=== PATIENT | female | born 1960 | race Caucasian/White ===

== ENCOUNTER 2019-05-02 10:29 | Observation (INO) ==
[2019-05-02] MEDS ORDERED: ZOFRAN IV PRN (14:07)
--- NOTE | 2019-05-02 14:25 | Diag Imaging Result Doc PS360 ---
CHEST-2 VIEWS - 05/02/2019 INDICATION: direct admit COMPARISON: None FINDINGS: There is significant left upper lobe pneumonia in the posterior segment. Heart size is normal. No pneumothorax or pleural effusion. IMPRESSION: Left upper lobe pneumonia. Consider a chest CT for further evaluation. Electronically signed by Kemar Wright 05/02/2019 2:23 PM
--- NOTE | 2019-05-02 15:19 | Diag Imaging Result Doc PS360 ---
EXAM: CT HEAD W/O CONTRAST HISTORY: r/o mets TECHNIQUE: CT head without contrast COMPARISON: None. FINDINGS: No parenchymal hemorrhage. No epidural or subdural hematoma. No subarachnoid hemorrhage. No mass identified on this noncontrasted exam. No hydrocephalus. No sinus opacification. IMPRESSION: No hemorrhage or mass. If clinical suspicion persists an MRI is recommended.. This exam was performed using automated exposure control, adjustment of mA or kV according to patient size, and/or use of iterative reconstruction technique. Electronically signed by Sincere Mcfadden 05/02/2019 3:17 PM
[2019-05-02 15:20] LABS: BASO# 0.02 X1000 (0.0-0.2); BASO% 0.2 % (0.0-0.8); EOS# 0.03 X1000 (0.0-0.7); EOS% 0.4 % (0.0-10.0); HEMATOCRIT 36.4 % (37.0-47.0); HEMOGLOBIN 12.2 g/dL (12.0-16.0); IMM GRAN# 0.02 X1000 (0.0-0.04); IMM GRAN% 0.2 % (0.0-0.5); LYMPH# 0.98 X1000 (1.2-3.4); LYMPH% 12.1 % (20.5-51.1); MCH 31.5 PG (27-31); MCHC 33.5 g/dL (33-37); MCV 94.1 FL (81-99); MONO% 6.2 % (1.7-9.3); MPV 9.4 FL (7.4-10.4); NEUT# 6.54 X1000 (1.4-6.5); NEUT% 80.9 % (42.2-75.2); PLT 346 X1000 (130-400); RBC 3.87 XMIL (4.2-5.4); RDW 13.5 % (11.5-14.5); WBC 8.09 X1000 (4.8-10.8)
[2019-05-02 15:29] LABS: PROTIME 13.3 Seconds (11.0-16.0); PTT 30.6 Seconds (22.3-41.8)
[2019-05-02 16:01] LABS: AGAP 21; ALB/GLOB RATIO 1.2; ALBUMIN 4.4 g/dL (3.5-5.0); ALKALINE PHOSPHATASE 133 U/L (32-104); BUN 14 mg/dL (8-22); CALCIUM 9.5 mg/dL (8.8-10.2); CHLORIDE 93 mmol/L (98-107); COSMO 264; CREATININE 0.8 mg/dL (0.5-0.9); ESTIMATED GFR > 60; GLUCOSE 88 mg/dL (70-104); GOT 46 U/L (10-30); GPT 23 U/L (10-36); POTASSIUM 4.4 mmol/L (3.5-5.1); SODIUM 132 mmol/L (136-145); TCO2 18 mmol/L (25-35); TOTAL BILIRUBIN 0.34 mg/dL (0.20-1.00); TOTAL PROTEIN 8.2 g/dL (6.3-8.3)
[2019-05-02] MEDS ORDERED: ZOFRAN ODT PO SCH (17:00)
--- NOTE | 2019-05-02 17:00 | Diag Imaging Result Doc PS360 ---
EXAM: CT THORAX W/O CONTRAST INDICATION: CXR recommend FU CT TECHNIQUE: This exam was performed using automated exposure control, adjustment of mA or kV according to patient size, and/or use of iterative reconstruction technique. COMPARISON: PET/CT from an outside facility dated 04/30/2019. FINDINGS: There is a known mass in the left upper lobe extending to the left hilum that is stable as compared to a very recent PET/CT. This also corresponds to the opacity seen in the left upper lobe on the recent chest radiograph. Note that the prior PET/CT was not available for comparison at that time. There is pleural-based nodularity that was hypermetabolic on the recent PET/CT indicating metastatic disease. There are several scattered subcentimeter noncalcified lung nodules on the left they're not clearly hypermetabolic on the previous PET scan. There are nonspecific. They still could represent metastatic foci and B2 small to exhibit hypermetabolic activity. For reference, one of the larger nodules measures up to 5 mm at the posterior aspect of the left lower lobe on image 52 of series 3. There is malignant left hilar and mediastinal lymphadenopathy that is unchanged compared to the very recent previous study. There is no pleural fluid collection and no pneumothorax. There are innumerable metastatic lesions seen throughout the liver parenchyma that were hypermetabolic on the recent PET/CT. A left adrenal mass indicating metastatic disease is identified. This was hypermetabolic on the recent PET/CT. There are multiple extremely vague metastatic lesions involving the lower thoracic spine and several ribs on the left. These are far better appreciated on the recent PET scan where there is associated increased metabolic activity. IMPRESSION: 1.No left upper lobe lung mass with left hilar and mediastinal lymphadenopathy and several small pleural-based masses on the left that are completely stable as compared to a very recent PET/CT dated 04/30/2019. 2.Stable innumerable metastatic lesions to the liver. 3.Stable left adrenal metastatic disease. 4.Stable very vague metastatic foci involving the lower thoracic spine and a couple of the left ribs. Electronically signed by Hal Chan 05/02/2019 4:58 PM
[2019-05-02] MEDS: NS 1,000 ML IV SCH (18:36)
[2019-05-02] MEDS: ZOFRAN ODT PO SCH (18:36)
--- NOTE | 2019-05-02 21:05 | HISTORY AND PHYSICAL ---
CHIEF COMPLAINT: Direct admission from Dr. Awad for further workup of metastatic cancer to the liver. HISTORY OF PRESENT ILLNESS: Ms. Hernandez is a 59-year-old female who carries a past medical history of hyperlipidemia, tobacco use with a pack to a pack and a half a day for 44 years, recent hematemesis, and right upper quadrant pain that was worked up by Dr. Casper with an EGD. She was found to have a hiatal hernia. CT scan showed spots on the liver. She was referred to Dr. Awad. She had a PET scan done that revealed metastatic disease on her liver as well as a left hilar mass, believed to be possible small cell. She has had a 12-pound weight loss over the course of 1 week. She initially started out at 97 pounds. She is now down to 84. She has continued with nausea. She has been unable to really eat or drink. She can only drink a little bit and take a couple of bites before she becomes nauseated or has abdominal pain. She was directly admitted for a liver biopsy as well as CT of the brain, with hopefully home in 48 hours to begin treatment on Tuesday with Dr. Awad. So far, workup with a head CT shows no hemorrhage or mass, only if clinical suspicion persists they recommend an MRI. Chest x-ray showed a left upper lobe pneumonia. Consider a CT of the chest for further evaluation. Laboratory data shows a white count of 8, AST of 46, alkaline phosphatase of 133, sodium of 132, BUN 14 and creatinine of 0.8. We will place her on Zofran before meals and p.r.n., as well as Ensure t.i.d. Send her for liver biopsy in the a.m. PAST MEDICAL HISTORY: 1. Hyperlipidemia, for which she takes no medications. 2. Tobacco use and abuse. 3. Alternates between constipation and diarrhea, but has never been diagnosed with any IBS or take any medication for it. 4. Hiatal hernia. 5. Recent hematemesis. 6. New diagnosis of metastatic cancer. PAST SURGICAL HISTORY: 1. Hysterectomy as well as scar tissue removal. 2. Neck surgery. 3. LASIK eye surgery. 4. Cholecystectomy. 5. Appendectomy. 6. Two left wrist surgeries. FAMILY HISTORY: Mother with congestive heart failure, throat cancer. Sister with cervical, mouth and skin cancer. Two brothers with lung cancer. SOCIAL HISTORY: She is a sazs-tpt-eps to a wxcz-una-vnrq-per-day smoker and has done so for 44 years. She is . No children. No alcohol. 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 She has 15 Pomeranians, 25 dogs total. ALLERGIES: No known drug allergies. HOME MEDICATIONS: Prilosec. PHYSICAL EXAMINATION: VITAL SIGNS: Temperature is 98.3 degrees, heart rate 92, respirations 20, blood pressure 152/83, O2 is 96% on room air. GENERAL: Ms. Hernandze is a pleasant 59-year-old female who is sitting up in the stretcher in no acute distress. HEENT: Atraumatic, normocephalic. PERRL. NECK: Supple. Trachea midline. CARDIOVASCULAR: S1, S2 appreciated. No murmurs, gallops or rubs noted. RESPIRATORY: Lung sounds clear bilaterally. GASTROINTESTINAL: Flat, soft. Tender in the right upper quadrant. Positive bowel sounds x4 quadrants. EXTREMITIES: Lower extremities are negative for edema. Bilateral pedal pulses are palpable. No clubbing, no cyanosis. NEUROLOGIC: No focal deficits are noted. She is awake, she is alert. She is oriented, follows commands. Moves all extremities. DIAGNOSTIC DATA: Head CT: No hemorrhage or mass. Recommend if clinical suspicion to follow up with MRI. Chest x-ray: Left upper lobe pneumonia. Consider chest CT for further evaluation. CT of the chest pending. LABORATORY DATA: White count 8, hemoglobin and hematocrit 12 and 36, platelet count is 346,000. Chemistry: Sodium 132, potassium 4.4, BUN 14, creatinine 0.8, blood glucose 88, magnesium 1.7, AST 46, alkaline phosphatase 133. ASSESSMENT AND PLAN: 1. Liver metastasis with a hilar mass, suspected small-cell lung cancer. We will get a liver biopsy in the a.m. The patient was a direct admit from Dr. Awad's office. We will obtain a head CT as well as a chest x-ray that recommended follow up with a CT of the chest, which we have obtained. Currently awaiting those results. 2. Abdominal pain. The patient prefers to continue with [place] at this time. 3. Intractable nausea. We will continue with Zofran 8 mg before meals b.i.d. and Ensure t.i.d. with a regular diet. 4. Questionable pneumonia seen on chest x-ray. We are going to follow up with CT of the thorax. The patient has not complained of any fever or chills. No cough. She does not have a white count. We will await those results before we start any antibiotics. 5. Tobacco use and abuse. The patient will need continued education on smoking cessation as well as the means to quit. 6. Further recommendations to follow physician evaluation, laboratory and diagnostic data. Dictated by AZEEM Chua for Bakari Mills MD cc: Bakari Mills MD
[2019-05-02] MEDS: NORCO-5 PO PRN (21:08)
--- NOTE | 2019-05-02 21:15 | HISTORY AND PHYSICAL ---
ADDENDUM: The patient is a 59-year-old female with metastatic cancer that looks like it is probably small-cell. She has a left upper lobe and she has innumerable masses in her liver. She was admitted because of abdominal pain, but in any case the patient is cachectic. I guess they are going to pursue a liver biopsy, although it seems like she could be bronchoscoped. She has a mass there. 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 Awad. We will follow along with him. cc: Bakari Mills MD
[2019-05-03] MEDS: ZOFRAN ODT PO SCH ×2 (06:05→16:25)
[2019-05-03] MEDS: PRILOSEC PO SCH (06:05)
[2019-05-03 07:21] LABS: BASO# 0.02 X1000 (0.0-0.2); BASO% 0.4 % (0.0-0.8); EOS# 0.15 X1000 (0.0-0.7); EOS% 2.7 % (0.0-10.0); HEMATOCRIT 30.6 % (37.0-47.0); HEMOGLOBIN 10.2 g/dL (12.0-16.0); IMM GRAN# 0.02 X1000 (0.0-0.04); IMM GRAN% 0.4 % (0.0-0.5); LYMPH# 1.19 X1000 (1.2-3.4); LYMPH% 21.8 % (20.5-51.1); MCH 31.4 PG (27-31); MCHC 33.3 g/dL (33-37); MCV 94.2 FL (81-99); MONO# 0.64 X1000 (0.11-0.59); MONO% 11.7 % (1.7-9.3); MPV 9.6 FL (7.4-10.4); NEUT# 3.45 X1000 (1.4-6.5); PLT 291 X1000 (130-400); RBC 3.25 XMIL (4.2-5.4); RDW 13.6 % (11.5-14.5); WBC 5.47 X1000 (4.8-10.8)
[2019-05-03 07:48] LABS: AGAP 17; BUN 17 mg/dL (8-22); CALCIUM 8.8 mg/dL (8.8-10.2); CHLORIDE 99 mmol/L (98-107); COSMO 273; CREATININE 0.6 mg/dL (0.5-0.9); ESTIMATED GFR > 60; GLUCOSE 85 mg/dL (70-104); MAGNESIUM 1.7 mg/dL (1.5-2.7); PHOSPHORUS 3.2 mg/dL (2.7-4.5); POTASSIUM 4.1 mmol/L (3.5-5.1); SODIUM 136 mmol/L (136-145); TCO2 20 mmol/L (25-35)
--- NOTE | 2019-05-03 07:49 | EKG Report ---
Test Performed on : 05/03/2019 07:33:28 AM Test Reason : direct admit Blood Pressure : / mmHG Vent. Rate : 081 BPM Atrial Rate : 081 BPM P-R Int : 158 ms QRS Dur : 128 ms QT Int : 404 ms P-R-T Axes : 060 180 071 degrees QTc Int : 469 ms Normal sinus rhythm. Right axis deviation Nonspecific intraventricular block Cannot rule out Anteroseptal infarct , age undetermined Abnormal ECG No previous ECGs available Unconfirmed Result
[2019-05-03] MEDS: NORCO-5 PO PRN ×3 (09:43→21:37)
--- NOTE | 2019-05-03 09:43 | Diag Imaging Result Doc PS360 ---
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 COMMENT: There are multiple masses throughout the liver. There are no previous MRI studies available for comparison however these were also demonstrated on the PET/CT of 04/30/2019. There is peripheral enhancement of these masses following gadolinium administration. The central portion of the masses demonstrates increased T2-weighted signal intensity and diminished T1-weighted signal intensity even after contrast suggesting necrosis. The lesion in the inferior medial left hepatic lobe which is demonstrated on image 40 was biopsied subsequently in CT and this particular lesion demonstrates less internal necrosis than the others. It measures 3.2 cm in transverse dimension. The adrenal glands are not apparently enlarged. There is no evidence of hydronephrosis. There are small cortical cysts in both kidneys. The spleen is not enlarged. There are multiple areas of increased T2-weighted signal intensity in the lumbar spine (particularly in L5,) visible portions of the thoracic spine, sacrum and iliac bones which may represent metastases. There are were also areas of increased FDG uptake seen on the PET scan in this area. There are some nodules present in the mesenteric fat anterior to the left lobe of the liver on image eight subadjacent to the hemidiaphragm which were also evidently hypermetabolic on the PET scan. This most likely represents mesenteric implants. IMPRESSION: Extensive hepatic metastatic disease. Bony metastasis in the pelvis and spine. Mesenteric implants as described. Electronically signed by Keith Stark 05/03/2019 9:41 AM
--- NOTE | 2019-05-03 09:48 | Diag Imaging Result Doc PS360 ---
EXAM: CT GUIDED BX LIVER 05/03/2019 HISTORY: liver mets TECHNIQUE: CT-guided biopsy of the left hepatic lobe COMMENT: The risks and benefits of the procedure including the possibility of bleeding, infection, reaction to lidocaine were discussed with the patient and she agreed to the procedure. Following sterile preparation of the skin anterior to the larger lesion in the medial left hepatic lobe, and administration 1% lidocaine to the skin and deeper soft tissues, a 18-gauge coaxial Temno core biopsy needle was employed to obtain three cores from the anterior portion of the lesion. There are no immediate complications. IMPRESSION: Successful CT-guided biopsy as described. Electronically signed by Keith Stark 05/03/2019 9:46 AM
[2019-05-03] MEDS: NS 1,000 ML IV SCH (11:43)
--- NOTE | 2019-05-03 15:03 | PROGRESS NOTE ---
DATE: 05/03/2019 SUBJECTIVE: The patient reported still complaining of abdominal pain. The patient had a liver biopsy this morning. OBJECTIVE: Vital Signs: Temperature is 98.2 degrees, heart rate 72, respiratory rate 19, blood pressure 135/65, O2 saturation 97% on room air. General Examination: This is a chronically ill- appearing and malnourished, 43-year-old, female lying in bed, in no acute distress. Cardiovascular Examination: S1 and S2 heard. No murmurs, gallops, or rubs. Regular rate and rhythm. Respiratory Examination: Clear bilaterally to auscultation. No work of breathing or using accessory muscles. Abdomen: Soft. Tenderness noted to palpation in the right upper quadrant. Bowel sounds present. No organomegaly. Extremities: No clubbing, cyanosis, or edema. Peripheral pulses present in both legs. Neurological Examination: The patient is alert and oriented x3. Moves 4 extremities. Laboratory Data: Reviewed. ASSESSMENT AND PLAN: 1. Liver metastasis with hilar mass, suspected small cell lung cancer. Patient underwent a liver biopsy today. We will see what it shows. Also, apparently, she is going to have a port placed tomorrow. Dr. Awad has sent this patient to the hospital so at this point, we will see what he has to say today. In the meantime, we will continue with [place] for controlling abdominal pain. Nausea is under control. We will continue with the same management. 2. Tobacco use and abuse. Patient advised to stop smoking. 3. Disposition. If the patient's abdominal pain is well controlled and the port is placed tomorrow, I think this patient can be discharged tomorrow. cc: Mohit Villalpando MD
--- NOTE | 2019-05-03 16:57 | HEMO/ONC CONSULTATION ---
DATE: 05/03/2019 REASON FOR CONSULTATION: This is a known patient of ours, for the evaluation of metastatic cancer to the liver. HISTORY OF PRESENT ILLNESS: Ms. Hernandez is a 59-year-old female whom we have treated in the office for a past history of osteoporosis. The patient is currently receiving Reclast. She saw Dr. Barger for RUQ pain. CT scan was done which showed multiple liver metastasis. She saw Dr. Csaper and had an EGD. She was found to have a hiatal hernia. Her PET scan revealed metastatic disease on her liver, as well as a left hilar mass believed to be possible small cell. She has had 12 pound weight loss over the course of the week. She has been unable to eat or drink very much because of nausea and abdominal pain. She has been admitted for a liver biopsy. Since her admission, she has had a head CT which is negative for hemorrhage or mass. The chest x-ray showed left upper lobe pneumonia. PAST MEDICAL HISTORY: 1. Hyperlipidemia, not medicated. 2. Tobacco use and abuse. 3. Alternates between constipation and diarrhea, but has never been diagnosed with IBS. 4. Hiatal hernia. 5. Recent hematemesis. 6. Metastatic cancer. 7. Osteoporosis. PAST SURGICAL HISTORY: 1. Hysterectomy as well as scar tissue removal. 2. Neck surgery. 3. LASIK eye surgery. 4. Cholecystectomy. 5. Appendectomy. 6. Two left wrist surgeries. FAMILY HISTORY: Mother had congestive heart failure and throat cancer. Sister had cervical, mouth, and skin cancer. Two brothers with lung cancer. SOCIAL HISTORY: A pack and a half to 1 pack a day for 44 years. She denies alcohol or illicit drug use. ALLERGIES: No known drug allergies. HOME MEDICATIONS: Include hydrocodone, hydroxyzine, and omeprazole. VITAL SIGNS: Temperature 97.4 degrees, pulse rate 77, respiratory rate 19, blood pressure 127/66, O2 saturation 98%. She has 9/10 back pain. PHYSICAL EXAMINATION: General: This is a small, thin patient, in no acute distress with a BMI of 17.5. HEENT: Sclera is anicteric. PERRLA. Oral mucosa is normal. Cardiovascular: Normal S1, S2. Heart rate and rhythm normal. Respiratory: Lungs are clear to auscultation. Normal respiratory effort. Gastrointestinal: Soft. Tender to the right upper quadrant. Extremities: No lower extremity edema noted. Neurological: Awake, alert, and oriented. No focal motor deficits are noted. LABORATORY: WBC 5.47, hemoglobin 10.2, hematocrit 30.6, platelet count 291,000. Creatinine 0.6, magnesium 1.7. ASSESSMENT AND PLAN: 1. Liver metastasis with hilar mass: We have obtained a liver biopsy. We are awaiting pathology. We will also obtain a CEA and CA-19-9. We will follow up on an LDH and uric acid as well. At this time, we will place the patient on allopurinol for possible tumor lysis. She needs chemotherapy ANGELO. 2. Abdominal pain. The patient is continuing on [place] at this time. She states her pain is tolerable. 3. Intractable nausea. Continue the patient with antiemetic medications around the clock. 4. Tobacco abuse. Continue to speak with the patient regarding smoking cessation. Offer education and means to quit. 5. Deep vein thrombosis prophylaxis. Ensure that the patient is getting up out of the bed several times a day. Consider SCDs while at rest. Dictated by AZEEM Quinonez for Christos Awad MD cc: Christos Awad MD [facility]
--- NOTE | 2019-05-03 18:31 | GENERAL SURGERY CONSULTATION ---
DATE: 05/03/2019 REASON FOR CONSULTATION: Venous access in the setting of metastatic carcinoma. CHIEF COMPLAINT: Weight loss and weakness. HISTORY OF PRESENT ILLNESS: This is a 59-year-old female who has history of extensive smoking, hyperlipidemia, and hematemesis. She was found to have peptic ulcer disease. CT scan was obtained that showed numerous pulmonary and hepatic lesions consistent with metastasis. Primary is unclear, although suspect that this is lung in etiology. She is undergoing plans for CT-guided biopsy. I was consulted for IV access palliative chemotherapy. She notes a significant weight loss. She has had no vascular procedures and denies any pain. MEDICAL HISTORY: Hyperlipidemia, ongoing smoking, some GI complaints attributed to IBS, hiatal hernia, peptic ulcer, metastatic carcinoma. SURGICAL HISTORY: Hysterectomy, neck surgery, bilateral LASIK surgery, cholecystectomy, appendectomy, and other upper extremity orthopedic procedure. FAMILY HISTORY: Brothers with lung cancer. Other medical issues in her family as well, including oropharyngeal cancer in her mother. SOCIAL HISTORY: Pack a day to 1-1/2 packs a day for 44 years. She is . Denies alcohol. She has 25 dogs total. REVIEW OF SYSTEMS: A 10-point review of systems performed, negative other than what is mentioned in HPI. PHYSICAL EXAMINATION: General: She is afebrile, pulse 80s, blood pressure 141/69, oxygen saturation 96%. She is chronically ill-appearing but in no acute distress. She is cachectic. HEENT: No scleral icterus. No cervical masses or scars. Cardiovascular: Normal rate. Pulmonary: No increased work of breathing. Abdomen: Soft, nontender, nondistended. Integument: Warm and dry without jaundice. Psychiatric: Appropriate affect. Neurologic: No gross deficits. Peripheral vascular: No upper or lower extremity edema. Lymphatic: I do not feel any cervical, supra or infraaxillary adenopathy. LABORATORY DATA: White count is 5, hematocrit is 30, INR is 1, creatinine 0.6. ASSESSMENT AND PLAN: This is a 59-year-old female with metastatic carcinoma. The primary is unclear. I have been consulted for venous access. We can provide this in the near future to facilitate her therapy, although she has an ongoing workup. Dr. Awad is following. We will plan for port either prior to leaving the hospital or as an outpatient depending on her course. cc: Arnold Rodriguez MD
[2019-05-04] MEDS: NS 1,000 ML IV SCH ×2 (00:31→14:02)
[2019-05-04] MEDS: NORCO-5 PO PRN ×3 (02:00→16:15)
[2019-05-04] MEDS: ZOFRAN ODT PO SCH ×2 (06:34→16:18)
[2019-05-04] MEDS: PRILOSEC PO SCH (06:34)
[2019-05-04 07:54] LABS: BASO# 0.03 X1000 (0.0-0.2); BASO% 0.6 % (0.0-0.8); EOS# 0.34 X1000 (0.0-0.7); EOS% 6.7 % (0.0-10.0); HEMOGLOBIN 10.6 g/dL (12.0-16.0); LYMPH% 19.6 % (20.5-51.1); MCH 31.5 PG (27-31); MCHC 33.1 g/dL (33-37); MCV 95.2 FL (81-99); MONO# 0.46 X1000 (0.11-0.59); MPV 9.9 FL (7.4-10.4); NEUT# 3.28 X1000 (1.4-6.5); NEUT% 64.1 % (42.2-75.2); PLT 292 X1000 (130-400); RBC 3.36 XMIL (4.2-5.4); WBC 5.11 X1000 (4.8-10.8)
[2019-05-04 08:06] LABS: URIC ACID 2.3 mg/dL (2.4-5.7)
[2019-05-04] MEDS ORDERED: ZYLOPRIM PO SCH (09:00)
--- NOTE | 2019-05-04 11:07 | HEMO/ONC PROGRESS NOTE ---
DATE: 05/04/2019 SUBJECTIVE: Ms. Hernandez is sitting up in her bed this morning. She states she is feeling better than she did yesterday. She denies any significant pain at the moment, but she states she does have a little bit of uncomfortableness. The patient is interested in going home soon. She states she has help at home. OBJECTIVE: Vital Signs: Temperature 97.6 degrees, pulse rate 70, respiratory rate 16, blood pressure 131/54, O2 saturation 99%. She is in 9/10 abdomen and leg pain. PHYSICAL EXAMINATION: General: Chronically ill cachetic female in no acute distress. HEENT: Sclerae is anicteric. PERRLA. Oral mucosa is moist. Respiratory: Lungs are clear to auscultation. Normal respiratory effort. Cardiovascular: Normal S1, S2. Heart rate and rhythm is regular. Abdomen: Soft, tender to the right upper quadrant. Bowel sounds are present. Extremities: No edema noted to lower extremities. Neurological: The patient is alert and oriented x3. Moves all 4 extremities at will. LABORATORY: WBC 5.11, hemoglobin 10.6, hematocrit 32.0, platelet count 292,000, ANC 3.28, uric acid 2.3, LDH 211, CEA 3.7. ASSESSMENT AND PLAN: 1. Liver metastasis with hilar mass. Preliminary pathology results are suggesting small cell lung cancer. OK for discharge after port. Plan for chemo outpatient soon. 2. Abdominal pain. The patient is comfortable on [place] at this time. She will need a pain prescription upon discharge. 3. Intractable nausea. Continue the patient on antiemetic medications around the clock. I will prescribe her antiemetic prescription. 4. Tobacco abuse. Continue to speak with the patient regarding smoking cessation. Offer any education and needs to quit. 5. Deep venous thrombosis prophylaxis. Continue to encourage the patient to get out of bed several times a day. Dictated by AZEEM Quinonez for Christos Awad MD cc: Christos Awad MD [facility]
[2019-05-04] MEDS ORDERED: XYLOCAINE-MPF 2% ONE (11:50)
[2019-05-04] MEDS ORDERED: DIPRIVAN 1% ONE ×2 (11:50→13:09)
[2019-05-04] MEDS ORDERED: VERSED ONE (11:52)
[2019-05-04] MEDS ORDERED: XYLOCAINE 1%/EPI 1:100,000 ONE (12:06)
[2019-05-04] MEDS ORDERED: NS 250 ML ONE (12:07)
[2019-05-04] MEDS ORDERED: KEFZOL 1 GM/D5W 1 GM/50 ML IVPB ONE (12:12)
[2019-05-04] MEDS ORDERED: KEFZOL ONE (12:23)
[2019-05-04] MEDS ORDERED: NORCO-5 ONE (13:37)
--- NOTE | 2019-05-04 15:03 | DISCHARGE SUMMARY ---
ADMISSION DATE: 05/02/2019 DISCHARGE DATE: 05/04/2019 DISCHARGE DIAGNOSES: 1. Liver metastasis with hilar mass, suspected small cell lung cancer. 2. Abdominal pain, improved. 3. Intractable nausea, improved. 4. Tobacco use and abuse. CONSULTATIONS: Dr. Awad from Oncology. PROCEDURES: 1. The chest x-ray done on admission showed left upper lobe pneumonia. Consider CT chest for further evaluation. 2. Chest CT showed new left upper lobe lung mass, stable very big metastatic involving the lower thoracic spine and a couple of the left ribs, stable, innumerable metastatic lesions to the liver. 3. Liver biopsy CT was successfully performed on May [address] Stark. HOSPITAL COURSE: In brief, this is a 59-year-old female who was admitted as a direct admission for recent finding of apparently lung cancer with liver metastasis. The patient was admitted to the hospital also for pain control. She had a CT-guided biopsy of the liver and also she had a port catheter placed. From Oncology standpoint, patient is doing fine so she is going to be seen in the office next week. She reports feeling okay. She is being discharged in stable condition. DISCHARGE PHYSICAL EXAMINATION: Temperature 97.4 degrees, heart rate 83, respiratory rate 18, blood pressure 131/54, O2 saturation 100% on room air. General Examination: This is a 59-year- old female lying in bed, in no acute distress. Cardiovascular Exam: S1, S2 heard. No murmurs, gallops, or rubs. Regular rate and rhythm. Respiratory Exam: Clear bilaterally to auscultation. No work of breathing. Not using accessory muscles. Abdomen: Soft, nontender to palpation. Bowel sounds present. No organomegaly. Extremities: No clubbing, cyanosis, or edema. Peripheral pulses present in both legs. Neurological: The patient is alert and oriented x3. Moves 4 extremities. DISCHARGE DISPOSITION: 1. Home to self-care. 2. Follow up with Dr. Awad in the office next week. 3. Recent Medications: [place] 5 mg 1 tablet p.o. every 4 hours as needed for pain. 4. Rest of home medications as she was taking. cc: MD CHADWICK Beckman
[2019-05-04 15:15] VITALS: BP 140/85
--- NOTE | 2019-05-04 21:31 | OPERATIVE NOTE ---
PROCEDURE DATE: 05/04/2019 PREOPERATIVE DIAGNOSIS: Metastatic carcinoma. POSTOPERATIVE DIAGNOSIS: Metastatic carcinoma. PROCEDURE PERFORMED: Ultrasound-guided right internal jugular vein port placement, with fluoroscopy less than 1 hour. ANESTHESIA: MAC with local. 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 Biopsies pending to identify etiology. Dr. Awad plans palliative chemotherapy. OPERATIVE FINDINGS: 1. Ultrasound of the right neck showed a compressible internal jugular vein with no thrombus. 2. Final fluoroscopic image showed good position of the catheter in the superior vena cava-atrial junction. No kinking of the catheter. No evidence of pneumothorax. OPERATIVE NOTE: Risks, benefits and alternatives were discussed with the patient. She consented to the procedure. Seen preoperatively, surgical site was confirmed. She was taken to the operating room and placed in supine position. Preincision antibiotics were administered. IV anesthesia was administered, with good effect. Her bilateral neck and chest were prepped with Betadine and draped in the usual fashion. After time-out, she was placed in Trendelenburg and the internal jugular vein was accessed on the first pass. Dark nonpulsatile venous blood was noted on return. The wire was threaded easily and was confirmed in the right side of the heart. Fluoroscopy. A subcutaneous pouch was made 2 fingerbreadths below the level of the clavicle. At this point in time, a tunneled catheter incision was made in the chest and incision made larger in the neck. Through the dilator, peel-away introducer sheath was advanced and the catheter was threaded in the right side of the heart, withdrawn until it was in good position. We then trimmed the catheter, connected the port and placed in the subcutaneous pouch, secured with Prolene suture. It was confirmed to withdraw blood and was flushed without resistance. Final fluoroscopic image was appropriate. We closed the dermis with 3-0 Vicryl suture. The skin was closed with 4-0 Monocryl and Dermabond was applied. Counts were correct. She was awoken and transferred to recovery. I spoke with family. cc: Arnold Rodriguez MD
== END 2019-05-04 16:56 | disposition home or self-care (01) | DRG 843 ==
LOC: DIRADM 10:29 → INTOOBSV 10:29 → SUATTDRO 10:29 → EDIPHOLD 13:26 → 3N 18:00
PROVIDERS: ATTEND Internal Medicine